=== PATIENT | female | born 1955 | race Caucasian/White ===

== ENCOUNTER 2022-02-23 13:35 | Emergency (ER) | payer OTHER, MEDICAID ==
[~2022-02-23] VITALS: Ht 152.4 cm; Wt 67.6 kg
[2022-02-23 13:55] VITALS: BP 144/89
--- NOTE | 2022-02-23 14:59 | NUR ---
PA Cruz evaluating patient at bedside.
--- NOTE | 2022-02-23 15:16 | NUR ---
66 y/o female bib self with c/o sore throat pain that radiates to right side of head x 5 days. Patient has 7/10 head pain. Patient states she "has a white head in the back of her throat and she has tried popping it for the last 5 months." Denies any fevers, chills or SOB. Medical History: DM, Asthma NKDA
[2022-02-23] MEDS ORDERED: IBUPROFEN 600 MG TAB PO ONE (15:20)
--- NOTE | 2022-02-23 15:37 | NUR ---
Strep, PEDRO and FLu samples obtained, walked to lab.
[2022-02-23] MEDS ORDERED: IBUP-2213 PO (16:41)
[2022-02-23] MEDS ORDERED: BENZ-300 PO (16:41)
[2022-02-23 16:53] VITALS: BP 128/68
--- NOTE | 2022-02-23 16:53 | NUR ---
Patient discharged with v/s stable. Written and verbal after care instructions given. Patient alert, oriented and verbalized understanding of instructions. Ambulatory with steady gait. All questions addressed prior to discharge. ID band removed. Patient advised to follow up with PMD. Rx of Ibuprofen and Cepacol Sore throat Lozenges given. Opportunity to ask questions provided and answered.
--- NOTE | 2022-02-23 16:54 | NUR ---
Chart checked and completed. The patient's care was reviewed and supervised by Hillary Brown RN.
== END 2022-02-23 16:53 | disposition home or self-care (01) ==
LOC: MED 13:35
DX: J02.9 Acute pharyngitis, unspecified (principal); Z20.822 Contact with and (suspected) exposure to COVID-19; M54.2 Cervicalgia; R51.9 Headache, unspecified; E11.9 Type 2 diabetes mellitus without complications; Z79.899 Other long term (current) drug therapy
CPT/HCPCS: 87081; 99283

== ENCOUNTER 2022-03-05 11:00 | Emergency (ER) | payer OTHER, MEDICAID ==
[~2022-03-05] VITALS: Ht 160 cm; Wt 74.8 kg
[~2022-03-05 11:00] MED LIST: BENZ-300 PO; IBUP-2213 PO
[2022-03-05 11:14] VITALS: BP 146/79
--- NOTE | 2022-03-05 12:31 | NUR ---
PT AMB WITH WALKER TO BED
--- NOTE | 2022-03-05 13:07 | NUR ---
PT WAS ASSESSED BY DR. ZAMAN THEN D/C'D HOME. Patient discharged with v/s stable. Written and verbal after care instructions given and explained. Patient verbalized understanding. Ambulatory with steady gait. All questions addressed prior to discharge. Advised to follow up with PMD.
[2022-03-05 13:12] VITALS: BP 134/75
== END 2022-03-05 13:07 | disposition home or self-care (01) ==
LOC: MED 11:00
DX: J02.9 Acute pharyngitis, unspecified (principal); J39.2 Other diseases of pharynx; R07.0 Pain in throat; E11.9 Type 2 diabetes mellitus without complications; Z79.899 Other long term (current) drug therapy
CPT/HCPCS: 99281